=== PATIENT | male | born 1960 | race Caucasian/White ===

== ENCOUNTER → 2016-06-29 | Outpatient (CLI) | payer BC ==
[2016-06-29 09:09] LABS: CHLORIDE,CL 108 mmol/L (98-110); SODIUM,NA 139 mmol/L (136-146)
== END ==
LOC: MW.CHIM 08:17
PROVIDERS: ATTEND Internal Medicine
DX: E66.01 Morbid (severe) obesity due to excess calories (principal); E78.00 Pure hypercholesterolemia, unspecified
CPT/HCPCS: 36415; 80053; 80061; 85025

== ENCOUNTER 2016-06-30 06:27 | Day surgery (SDC) | payer BC ==
--- NOTE | 2016-06-29 16:05 | PCM.PREANE ---
<Criss Collins - Last Filed: 06/29/16 16:00> Preanesthetic Assessment - PMH PMH: scheduled for Left inguinal hernia repair with mesh - ANESTHESIA/TRANSFUSION/FAMILY HX Anesthesia/Transfusion History: Prior Anesthesia Type of Anesthesia Reaction: Denies: Allergy, Anesthesia Awareness, Excessive Somnolence, Excessive Nausea/Vomiting, Excessive Itching, Excessive Shivering, Malignant Hyperthermia, Malignant Hyperthermia, Family History, Pseudocholinesterase Deficiency, Pseudocholinesterase Deficiency, Family History of, Urinary Retention, Unknown, Other (see below) Family History of Anesthesia Reaction: No - PHYSICAL ASSESSMENT Vital Signs: Last Vital Signs Temp 98.1 F 06/30/16 06:44 Pulse 90 06/30/16 06:44 Resp 18 06/30/16 06:44 BP 156/74 H 06/30/16 06:44 Pulse Ox 99 06/30/16 06:44 Height: 6 ft Weight: 317 lb - LAB Values: Laboratory Last Values POC Glucose 108 mg/dL (60-110) 06/30/16 06:35 - ALLERGIES Allergies/Adverse Reactions: Allergies Allergy/AdvReac Type Severity Reaction Status Date / Time No Known Allergies Allergy Verified 06/27/16 11:17 - BLOOD Blood Available: No - ANESTHESIA PLAN Anesthesia Type Planned: general anesthesia (ETT) PreAnesthesia Questionnaire HEENT History: Reports: Allergic rhinitis, Other (see below) Other HEENT History: wears glasses Cardiovascular History: Reports: High cholesterol Gastrointestinal History: Reports: Diverticulosis, GERD Other Musculoskeletal History: Left inguinal hernia x 3+ years. Endocrine/Metabolic History: Reports: Obesity/BMI 30+ Other Endocrine/Metabolic History: pre diabetic - Past Surgical History Head Surgeries/Procedures: Reports: None GI Surgical History: Reports: Colonoscopy - SUBSTANCE USE Smoking Status *Q: Former Smoker Tobacco Use Within Last Twelve Months: No Days Per Week of Alcohol Use: 1 (7 or less drinks per week) Recreational Drug Use History: No - HOME MEDS Home Medications: Home Meds Aspirin [Low Dose Aspirin EC] 81 mg PO DAILY 06/27/16 [History] Fexofenadine [Neva] 1 tab PO ASDIRECTED PRN 06/27/16 [History] Multivitamin [Multivitamins] 1 tab PO DAILY 06/27/16 [History] Omeprazole 20 mg PO DAILY 06/27/16 [History] Simvastatin [Zocor] 20 mg PO DAILY 06/27/16 [History] Tadalafil [Cialis] 0.5 - 1 tab PO ASDIRECTED PRN 06/27/16 [History] - CURRENT (IN HOUSE) MEDS Current Meds: Current Medications Lactated Ringer's (Ringers, Lactated) 1,000 mls @ 125 mls/hr IV ASDIRECTED ALFREDO Last Admin: 06/30/16 06:48 Dose: 125 mls/hr Cefazolin Sodium/Dextrose 2 gm (/ Premix) 50 mls @ 100 mls/hr IV ONETIME ALFREDO Discontinued Medications Bupivacaine HCl (Sensorcaine-Mpf 0.5%) Confirm Administered Dose 20 ml .ROUTE .STK-MED ONE Stop: 06/30/16 07:29 Cefazolin Sodium (Ancef) Confirm Administered Dose 1 gm .ROUTE .STK-MED ONE Stop: 06/30/16 07:29 Fentanyl (Sublimaze) Confirm Administered Dose 100 mcg .ROUTE .STK-MED ONE Stop: 06/30/16 07:26 Fentanyl (Sublimaze) Confirm Administered Dose 250 mcg .ROUTE .STK-MED ONE Stop: 06/30/16 07:26 Glycopyrrolate (Robinul) Confirm Administered Dose 1 mg .ROUTE .STK-MED ONE Stop: 06/30/16 07:29 Lidocaine (Xylocaine-Mpf 2%) Confirm Administered Dose 10 ml .ROUTE .STK-MED ONE Stop: 06/30/16 07:26 Midazolam HCl (Versed 1 Mg/Ml) Confirm Administered Dose 2 mg .ROUTE .STK-MED ONE Stop: 06/30/16 07:26 Neostigmine Methylsulfate (Neostigmine) Confirm Administered Dose 5 mg .ROUTE .STK-MED ONE Stop: 06/30/16 07:29 Ondansetron HCl (Zofran) Confirm Administered Dose 4 mg .ROUTE .STK-MED ONE Stop: 06/30/16 07:29 Propofol (Diprivan 20 Ml) Confirm Administered Dose 400 mg .ROUTE .STK-MED ONE Stop: 06/30/16 07:26 Rocuronium [place] (Zemuron) Confirm Administered Dose 100 mg .ROUTE .STK-MED ONE Stop: 06/30/16 07:29 Patrick Anand - Last Filed: 06/30/16 07:45> Preanesthetic Assessment - REVIEW OF SYSTEMS Constitutional: Reports: no symptoms, unintentional weight gain (obesity (300+ lbs)) 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 Respiratory: Reports: no symptoms Cardiovascular: Reports: no symptoms GI: Reports: no symptoms Other: Reports: none (intermittent GERD) - PHYSICAL ASSESSMENT ASA Class: 3 Mental Status: alert & oriented x3 Airway Class: Mallampati = 2 Dentition: Reports: normal dentition Thyro-Mental Finger Breadths: 3 Mouth Opening Finger Breadths: 3 ROM/Head Extension: full Respiratory Status: lungs clear to auscultation bilaterally Cardiovascular Status: regular rate & rhythm, no murmur - ANESTHESIA PLAN Preop Beta Mari: No - ACKNOWLEDGEMENTS Pt an appropriate candidate for the planned anesthesia: Yes Alternatives and risks of anesthesia discussed w pt/guardian: Yes Pt/Guardian understands and agree with anesthesia plan: Yes
[2016-06-30] MEDS ORDERED: ceFAZolin 2 GM in Premix Bag 1 BAG IV SCH (07:00)
[2016-06-30] MEDS ORDERED: Lactated Ringers 1,000 ML IV SCH ×2 (07:00→09:30)
[2016-06-30] MEDS ORDERED: Midazolam 1 MG/ML 2 ML SDV ONE (07:25)
[2016-06-30] MEDS ORDERED: Lidocaine 2% 5 ML SDV ONE (07:25)
[2016-06-30] MEDS ORDERED: fentaNYL 250 MCG/5 ML SDV ONE (07:25)
[2016-06-30] MEDS ORDERED: fentaNYL 100 MCG/2 ML SDV ONE ×2 (07:25→08:36)
[2016-06-30] MEDS ORDERED: Propofol 200 MG/20 ML SDV ONE ×2 (07:25→08:38)
[2016-06-30] MEDS ORDERED: Ondansetron 4 MG/2 ML SDV ONE (07:28)
[2016-06-30] MEDS ORDERED: ceFAZolin 1 GM Vial ONE (07:28)
[2016-06-30] MEDS ORDERED: Neostigmine Methylsulfate 1 MG/ML 5 ML Syringe ONE (07:28)
[2016-06-30] MEDS ORDERED: Bupivacaine 0.5% 10 ML SDV ONE (07:28)
[2016-06-30] MEDS ORDERED: Rocuronium 10 MG/ML 10 ML Syringe ONE (07:28)
[2016-06-30] MEDS ORDERED: fentaNYL 100 MCG/2 ML SDV IVPUSH PRN (08:26)
[2016-06-30] MEDS ORDERED: HYDROmorphone 2 MG/ML Syringe IVPUSH ONE (08:26)
[2016-06-30] MEDS ORDERED: ePHEDrine 50 MG/ML SDV ONE (08:32)
[2016-06-30] MEDS ORDERED: Acetaminophen/HYDROcodone 325-5 MG Tab PO PRN (09:26)
[2016-06-30] MEDS ORDERED: Morphine 10 MG/ML Syringe IVPUSH PRN (09:26)
--- NOTE | 2016-06-30 09:32 | PCM.OPNOTE ---
- General Post-Op/Procedure Note Date of Surgery/Procedure: 06/30/16 Operative Procedure(s): Repair incarcerated left inguinal hernia with extra large Bard PerFix plug and patch Pre Op Diagnosis: Incarcerated left inguinal hernia Post-Op Diagnosis: Same Anesthesia Technique: General ET tube (ASA III) Primary Surgeon: Mukesh Jesus Ship Ceiler: Imani Dobson Fluid Replacement, Intraop: 1,300 EBL in mLs: 20 Condition: Good Free Text/Narrative:: Dictation [id number]
--- NOTE | 2016-06-30 10:08 | PCM.POSTAN ---
POST ANESTHESIA ASSESSMENT - MENTAL STATUS Mental Status: alert, oriented - RESPIRATORY Respiratory Status: respiratory rate WNL, airway patent, O2 saturation stable - CARDIOVASCULAR CV Status: pulse rate WNL, blood pressure stable - GASTROINTESTINAL GI Status: no symptoms - PAIN Pain Score: 4 - POST OP HYDRATION Hydration Status: adequate & stable
--- NOTE | 2016-06-30 11:27 | PCM48HPAN ---
Post Anesthesia Note - EVALUATION WITHIN 48HRS OF ANESTHETIC Vital Signs in Normal Range: Yes Patient Participated in Evaluation: Yes Respiratory Function Stable: Yes Airway Patent: Yes Cardiovascular Function Stable: Yes Hydration Status Stable: Yes Pain Control Satisfactory: Yes Nausea and Vomiting Control Satisfactory: Yes Mental Status Recovered: Yes
[2016-06-30 13:36] VITALS: BP 126/76
--- NOTE | 2016-06-30 13:54 | OR ---
SURGEON: Mukesh Jesus M.D. DATE OF PROCEDURE: 06/30/2016 OPERATION PERFORMED: Repair of incarcerated left inguinal hernia with Extra Large Bard PerFix plug and patch. CHARGING MACHINE OPERATOR: Dr. Dobson. ANESTHESIA: General endotracheal. ASA CLASSIFICATION: III. PREOPERATIVE DIAGNOSIS: Incarcerated left inguinal hernia. POSTOPERATIVE DIAGNOSIS: Incarcerated left inguinal hernia. ESTIMATED BLOOD LOSS: 20 mL. INTRAOPERATIVE FLUID REPLACEMENT: 1300 mL of crystalloid. DESCRIPTION OF PROCEDURE: The patient was taken to the operating room and placed on the operating table in the supine position. Time-out was called for appropriate identification of the patient and procedure. The surgical site had been marked prior to the patient entering the operating room. Thigh-high TEDs and sequential compression boots were placed. Following satisfactory attainment of general endotracheal anesthesia, the abdomen was prepped with DuraPrep solution and sterile drapes were applied. The skin incision was marked out on the left inguinal crease and infiltrated with 10 mL of 0.5% Marcaine solution. The skin incision was then made and deepened through the subcutaneous tissue obtaining hemostasis with a combination of electrocautery and 3-0 Vicryl ties. Dissection was carried down to the hernia sac which was mobilized. This was quite large. The external oblique was opened in the direction of its fibers. Once the cord was from the hernia sac, it was encircled with the [place] drain and retracted out of harm's way. We were then able to reduce the hernia sac and its contents. An Extra Large Bard PerFix plug and patch was brought to the operating table and soaked in 1% Ancef solution. The plug was placed into the internal ring and secured with interrupted 0 Ethibond sutures. The patch was placed over this and secured medially to Hawk's ligament inferiorly and transversalis fascia superiorly. The repair was carried out from medial to lateral. The inferior sutures of 0 Ethibond were placed initially to Hawk's ligament then to the inguinal ligament. Superiorly 0 Ethibond was used in an interrupted fashion to suture the mesh to the transversalis fascia. Once all sutures were placed, the wings of the patch were brought around this cord and secured laterally. All sutures were tied down with the exception of the lateral stitch. The patient was given a Valsalva maneuver to 62 cm and there was no evidence of recurrence of the hernia. The lateral suture was then secured with care taken not to impinge on the cord. The wound was inspected for hemostasis. No bleeding was noted. The cord was returned to its anatomic location with care taken to make sure the testicle was in the left scrotal sac. The external oblique was reapproximated with 3-0 Vicryl. The wound was irrigated with 1% Ancef solution. The Ila's fascia was closed with 3-0 Polysorb and the skin edges were reapproximated with subcuticular 4-0 Monocryl reinforced with Steri-Strips. Sterile Tegaderm pad was placed as a dressing. Sponge, needle, and instrument counts were all correct. After the drapes were removed, the left scrotal sac was examined and the testicle present. The patient tolerated the procedure well. Following emergence from anesthesia and extubation, he was taken to recovery room in satisfactory condition. SONALI DIANE /[id number]
== END 2016-06-30 13:15 | disposition home or self-care (01) ==
LOC: MW.SDS 06:27
PROVIDERS: ATTEND Surgery
PROC: 0YU60JZ Supplement Left Inguinal Region with Synthetic Substitute, Open Approach (ICD-10-PCS; principal; 2016-06-30)
DX: K40.90 Unilateral inguinal hernia, without obstruction or gangrene, not specified as recurrent (principal); K21.9 Gastro-esophageal reflux disease without esophagitis; N52.9 Male erectile dysfunction, unspecified; E78.00 Pure hypercholesterolemia, unspecified; E66.01 Morbid (severe) obesity due to excess calories; Z79.82 Long term (current) use of aspirin; Z79.899 Other long term (current) drug therapy; Z98.890 Other specified postprocedural states; Z87.891 Personal history of nicotine dependence; Z68.41 Body mass index [BMI] 40.0-44.9, adult
CPT/HCPCS: 49505; 82962; A9270; C1781; J0690; J2250; J2405; J2710; J3010; J7120; 00830; J2704